=== PATIENT | male | born 2000 ===

== ENCOUNTER 2018-07-10 07:00 | Day surgery (SDC) | payer OTHER ==
[~2018-07-10] VITALS: Ht 172.7 cm; Wt 50.4 kg
[2018-07-10] MEDS ORDERED: INTUNIV2 MG PO (07:25)
[2018-07-10] MEDS ORDERED: 5-HTP200 MG PO (07:26)
[2018-07-10] MEDS ORDERED: MULTI VITAMIN1 EACH PO (07:26)
--- NOTE | 2018-07-10 09:37 | NUR ---
RAILS UP X2 MOM AT BS. VERSED GIVEN. INSTRUCTED TO NOT GET OOB WITHOUTM ASSIST.
--- NOTE | 2018-07-10 11:45 | NUR ---
07/10/18 1145 Elo Durán 1130- PT ARRIVES TO PACU NONAROUSABLE TO NOXIOUS STIMULI. RESP EVEN AND UNLABORED. OXYGEN SAT 100% ON 10L VIA MASK. 1131- PT'S SECRETIONS SUCTIONED OUT OF HIS MOUTH. RESP REMAIN EVEN AND UNLABORED. OXYGEN SAT HIGH 90'S TO 100% ON 6L VIA MASK.
--- NOTE | 2018-07-10 12:05 | NUR ---
PT ARRIVES BACK TO DS ROOM 2 FROM PACU ON RA. PT AWAKE AND ORIENTED. PT'S BASELINE IS NONVERBAL, MENTAL DELAY. PT DOES HAVE RED DRAINAGE ON LIPS AND IN MOUTH FROM EXTRACTION OF TWO TEETH ON RIGHT LOWER SIDE. SURGICEL AND SUTUTRES IN PLACE. VSS. PT'S MOTHER AT BEDSIDE. CALL LIGHT WITHIN REACH
== END 2018-07-10 13:25 | disposition home or self-care (01) ==
LOC: DS 07:00 → OPS 07:00 → DS 09:10 → OPS 09:10 → DS 11:15 → OPS 13:25
PROVIDERS: Dentist General Practice
PROC: 0CRWXJ1 Replacement of Upper Tooth, Multiple, with Synthetic Substitute, External Approach (ICD-10-PCS; 2018-07-10)
PROC: 0CDXXZ1 Extraction of Lower Tooth, Multiple, External Approach (ICD-10-PCS; 2018-07-10)
PROC: 0CRXXJ1 Replacement of Lower Tooth, Multiple, with Synthetic Substitute, External Approach (ICD-10-PCS; principal; 2018-07-10 09:10)
DX: K02.9 Dental caries, unspecified (principal); K04.7 Periapical abscess without sinus; K03.6 Deposits [accretions] on teeth
CPT/HCPCS: J0131; J0330; J1100; J2250; J2405; J2704; J7120